=== PATIENT | female | born 1965 | race Caucasian/White ===

== ENCOUNTER → 2020-05-04 | Outpatient (CLI) | payer BC ==
[~2020-05-04] MED LIST: CEFUROXIME250 MG PO; LEXAPRO10 MG PO; SUBOXONE 8 MG-1 EACH SL; TRAZODONE HCL100 MG PO
== END ==
LOC: KOH-I 12:36
DX: M25.552 Pain in left hip (principal)
CPT/HCPCS: 73502

== ENCOUNTER → 2021-08-30 | Outpatient (CLI) | payer BC | LOC: KOH-I 15:57 | DX: M25.562 Pain in left knee (principal); M25.462 Effusion, left knee; M17.12 Unilateral primary osteoarthritis, left knee | CPT/HCPCS: 73562 ==